=== PATIENT | female | born 1965 | race American Indian/Alaskan Native ===

== ENCOUNTER 2016-12-08 13:51 | Outpatient (CLI) | payer BC ==
--- NOTE | 2016-12-09 16:55 | Vascular Lab Report ---
LEFT UPPER EXTREMITY VENOUS DUPLEX: REASON FOR EXAM: Swelling COMMENTS ON THE LEFT: Acute thrombosis following in the left internal jugular vein. The remaining veins visualized are freely compressible without evidence of internal echogenicity. Spontaneous and phasic flow is absent proximally. COMMENTS ON THE RIGHT: The subclavian and internal jugular veins are free of thrombus. IMPRESSION: Acute DVT in the left internal jugular vein
== END 2016-12-08 13:52 | disposition home or self-care (01) ==
LOC: VAS 13:51
PROVIDERS: ATTEND Internal Medicine Hematology & Oncology
DX: I82.C12 Acute embolism and thrombosis of left internal jugular vein (principal); C50.111 Malignant neoplasm of central portion of right female breast

== ENCOUNTER 2017-03-02 10:38 | Outpatient (CLI) | payer BC ==
--- NOTE | 2017-03-02 17:41 | Vascular Lab Report ---
LEFT UPPER EXTREMITY VENOUS DUPLEX: REASON FOR EXAM: Swelling of the left upper extremity COMMENTS ON THE LEFT: All arm veins visualized are freely compressible without evidence of internal echogenicity. The subclavian vein is free of thrombus. Chronic clot is noted in the internal jugular vein. COMMENTS ON THE RIGHT: The subclavian and internal jugular veins are free of thrombus. 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
== END 2017-03-02 10:39 | disposition home or self-care (01) ==
LOC: VAS 10:38
PROVIDERS: ATTEND Internal Medicine Hematology & Oncology
DX: I82.C22 Chronic embolism and thrombosis of left internal jugular vein (principal); C50.511 Malignant neoplasm of lower-outer quadrant of right female breast

== ENCOUNTER 2018-06-12 08:34 | Day surgery (SDC) | payer BC ==
[~2018-06-12 08:34] MED LIST: DEMEROL IV PRN; DILAUDID IV PRN; ZOFRAN IV PRN
[2018-06-12] MEDS ORDERED: VERSED IV NR (09:00)
[2018-06-12] MEDS ORDERED: LACTATED RINGERS 1,000 ML IV SCH ×2 (09:00→11:00)
--- NOTE | 2018-06-12 10:35 | Anesthesia Consultation ---
Anesthesia Consult and Med Hx Date of service: 06/12/18 - Airway Anesthetic Teeth Evaluation: Good ROM Head & Neck: Adequate Mental/Hyoid Distance: Adequate Mallampati Class: Class III Intubation Access Assessment: Possibly Difficult - Pulmonary Exam CTA: Yes - Cardiac Exam Cardiac Exam: RRR - Pre-Operative Health Status ASA Pre-Surgery Classification: ASA3 Proposed Anesthetic Plan: General - Pulmonary Hx Smoking: No Hx Asthma: Yes (Ran out of albuterol several days ago. Denies dyspnea/wheezing) Hx Respiratory Symptoms: No SOB: No Hx Sleep Apnea: No (CHIRAG PRE SCREEN HIGH RISK.) - Cardiovascular System Hx Hypertension: No Hx Heart Attack/AMI: No Hx Angina: Yes (atypical; noncardiac etiology per cardiology records on chart) Hx Percutaneous Transluminal Coronary Angioplasty (PTCA): No Hx Cardia Arrhythmia: Yes (hx a-fib x1 episode) Hx Pacemaker: No Hx Internal Defibrillator: No Hx Valvular Heart Disease: Yes (trace TR on 01/2018 TTE) - Central Nervous System Hx Seizures: No CVA: No Hx Psychiatric Problems: Yes (anxiety/depresison) - Gastrointestinal Hx Gastroesophageal Reflux Disease: Yes (asymptomatic today) - Endocrine Hx Renal Disease: No Hx Liver Disease: No Hx Insulin Dependent Diabetes: No Hx Thyroid Disease: No - Hematic Hx Anemia: Yes (Hb 10.1) - Other Systems Hx Cancer: Yes (Hx breast Ca s/p chemo, surgery in 2016) - Additional Comments Anesthesia Medical History Comments: Mild PONV with previous surgery.
[2018-06-12] MEDS ORDERED: TRANSDERM-SCOP TD NR (11:00)
[2018-06-12] MEDS ORDERED: ANCEF/STERILE WATER 2 GM/20 ML IV NR (11:19)
--- NOTE | 2018-06-12 11:25 | Anesthesia Day of Surgery ---
Anesthesia Day of Surgery - Day of Surgery Patient Examined: Yes Patient H&P Reviewed: Yes Patient is NPO: Yes
[2018-06-12] MEDS ORDERED: ZOFRAN ONE ×2 (11:33→12:19)
[2018-06-12] MEDS ORDERED: SUBLIMAZE ONE ×2 (11:34→12:09)
[2018-06-12] MEDS ORDERED: DIPRIVAN 10 MG/ML IV ONE (11:34)
[2018-06-12] MEDS ORDERED: NACL 0.9% IR ONE (12:13)
[2018-06-12] MEDS ORDERED: XYLOCAINE MPF 2% ONE (12:20)
[2018-06-12] MEDS ORDERED: NEO SYNEPHRINE/NS Syringe(OR USE) IV ONE (12:26)
[2018-06-12] MEDS ORDERED: ROBINUL ONE (12:27)
[2018-06-12 13:36] VITALS: BP 100/64
--- NOTE | 2018-06-12 14:19 | Fluoroscopy Report ---
FLUOROSCOPY RETROGRADE UROGRAPHY: HISTORY: Urinary retention. FINDINGS: Fluoroscopy was provided by radiology during retrograde urography by the urologist. 7 fluoroscopic images were captured. There is adequate filling of the ureters and intrarenal collecting systems with no filling defects or anatomic abnormalities identified. Please correlate with the procedural report if needed. IMPRESSION: Retrograde pyelograms within normal limits.
--- NOTE | 2018-06-12 14:21 | Fluoroscopy Report ---
FLUOROSCOPY CYSTOGRAM STATIC History: Retention of urine. Findings: Fluoroscopy was provided by radiology during cystogram via the urologist. A single fluoroscopic image was captured which demonstrates partial distention of the bladder. No gross bladder abnormality is detected although the bladder is poorly distended. A Hassan catheter is in place. Impression: Unremarkable cystogram.
--- NOTE | 2018-06-12 15:44 | Post Operative Note ---
Date of procedure: 06/12/18 Pre-op diagnosis: urinary retention Post-op diagnosis: same Findings: ?? mass urethra Procedure: cysto biopsies rpgs Anesthesia: GETA Surgeon: INDY MERCHANT Estimated blood loss: minimal Pathology: list (urethra) Specimen disposition: to lab Condition: stable Disposition: PACU
--- NOTE | 2018-06-12 15:45 | Discharge Summary ---
Short Stay Discharge Plan Activity: other (no straining ) Weight Bearing Status: Full Weight Bearing Diet: low fat Special Instructions: other (inc fluids ) Durable Medical Equipment Needed Upon Discharge: other (shore ) Additional Instructions: Drink plenty of fluids and ensure you stay well hydrated today. Call surgeon's office if more than 6 hours has elapsed and you are not able to urinate. Follow up with: VIOLETA HATCH MD [Primary Care Provider] - 7 Days INDY MERCHANT MD [Staff Physician] - 7 Days
--- NOTE | 2018-06-12 21:10 | Operative Report ---
PREOPERATIVE DIAGNOSES: Urinary retention, questionable bladder mass. POSTOPERATIVE DIAGNOSES: Urinary retention, questionable bladder mass with very difficult urethra, possible mass or just redundant urethra. PROCEDURE: Urethral dilatation, cystoscopy, urethral biopsy, retrograde. SURGEON: Trevor Jimenez MD ANESTHESIA: General. FINDINGS: This is a woman who presents with difficulty voiding. She has fullness around her urethra. I did not appreciate anything that could look like a fluid-like diverticulum. She now presents for cystoscopy. DESCRIPTION OF PROCEDURE: The patient brought to the operating room and placed on the operating table. Following induction of anesthesia, placed in lithotomy position, prepped and draped in usual sterile fashion. On the cystourethroscopy, we could not navigate the urethra with a 22 scope. We started with the ureteroscope and we were able to see a high-riding bladder neck with what looks like there was just very redundant epithelium. Once we were in the bladder, we placed a wire, so we had good access. We dilated this over with the urethral dilators to 20-Wallisian and then we could place bigger scope. We did urethral biopsies. There were no well-defined masses, just in the channel it was so tight that it almost looked like the urethra was redundant, so we did some biopsies. Retrogrades were done, there were bilateral ureteroceles, no persistent filling defects, but you could see the ureteral stones on both sides, which emptied well. The patient tolerated the procedure well. There were no bladder lesions. We placed a 22 [place], brought to recovery in stable condition. We were thinking of trying to biopsy the meatus, but there was not really much tissue there. We tried even the biopsy gun, but did not get much tissue, so we did not want to cause much bleeding, so she was brought to recovery in stable condition with a Hassan catheter. JOB# [id number] TIMA/NATHANIEL
== END 2018-06-12 14:24 | disposition home or self-care (01) ==
LOC: OR 08:34
PROVIDERS: ATTEND Urology
DX: N34.2 Other urethritis (principal); N20.1 Calculus of ureter; R33.9 Retention of urine, unspecified; N28.89 Other specified disorders of kidney and ureter; I20.8 Other forms of angina pectoris; J45.909 Unspecified asthma, uncomplicated; K21.9 Gastro-esophageal reflux disease without esophagitis; M19.90 Unspecified osteoarthritis, unspecified site; F32.9 Major depressive disorder, single episode, unspecified; F41.9 Anxiety disorder, unspecified; Z85.3 Personal history of malignant neoplasm of breast; Z90.13 Acquired absence of bilateral breasts and nipples; Z87.440 Personal history of urinary (tract) infections; Z86.2 Personal history of diseases of the blood and blood-forming organs and certain disorders involving the immune mechanism; Z79.899 Other long term (current) drug therapy; Z98.49 Cataract extraction status, unspecified eye
CPT/HCPCS: 52281; 74420; 88305; A4217; C1726; J2250; J2370; J2405; J2704; J3010; J7120; Q9967; 74430